=== PATIENT | female | born 1940 | race Asian ===

== ENCOUNTER 2019-09-24 18:21 | Emergency (ER) | payer MEDICARE, MEDICAID ==
[~2019-09-24] VITALS: Ht 152.4 cm; Wt 59.9 kg
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
--- NOTE | 2019-09-24 20:01 | NUR ---
PT REPOTED SHE LIVES W/ A ROOMATE AT [address] IN [place] AND HAS NO ONE TO PICK HER UP AND NO MONEY TO GET A CAB.
--- NOTE | 2019-09-25 07:00 | NUR ---
CALLED BROTHER CHAD GILLESPIE @[phone] AND CONFIRMED THE PT'S ADDRESS [address] [place] [address] [id number]. [place]I [id number] PER PT AND THE BROTHER , PT IS LIVING W/ HER SON
--- NOTE | 2019-09-25 07:09 | NUR ---
PT WAS EVALUATED BY DR GALVEZ. PER MD PT CECILIA HAVE TO STAY OVER , SEEN BY SW AND PICKED UP BY SON TO ENSURE SAFETY
--- NOTE | 2019-09-25 07:20 | NUR ---
CALLED BROTHER AND REQUESTED RIDE
--- NOTE | 2019-09-25 08:22 | NUR ---
patient consulted by [facility] public health social worker.
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
--- NOTE | 2019-09-25 09:14 | NUR ---
PATIENT'S BROTHER CAME, Patient discharged to home in stable condition. Written and verbal after care instructions given to brother and patient, both verbalizes understanding of instruction.
[2019-09-25 09:16] VITALS: BP 140/69
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
== END 2019-09-25 09:16 | disposition home or self-care (01) ==
LOC: ER 18:30
DX: S80.212A Abrasion, left knee, initial encounter (principal); S80.211A Abrasion, right knee, initial encounter; I10 Essential (primary) hypertension; E11.9 Type 2 diabetes mellitus without complications; M19.90 Unspecified osteoarthritis, unspecified site; Z60.2 Problems related to living alone; W18.39XA Other fall on same level, initial encounter; Y93.89 Activity, other specified; Y92.89 Other specified places as the place of occurrence of the external cause; Y99.8 Other external cause status